=== PATIENT | female | born 2005 | race Hispanic/Latino ===

== ENCOUNTER 2025-01-12 17:33 | Emergency (ER) | payer SELFPAY ==
[~2025-01-12] VITALS: Ht 160 cm; Wt 99.8 kg
[2025-01-12 18:04] VITALS: TEMP 98.7
[2025-01-12] MEDS: ONDANSETRON HCL INJ 2MG/ML 2ML 2 MG/ML VIAL IV STA (18:25)
[2025-01-12 18:37] LABS: BASOPHILS % 0.4 % (0.0-1.0); EOSINOPHILS % 0.6 % (0.0-6.0); LYMPHOCYTES % 31.0 % (18.0-39.1); MONOCYTES % 4.9 % (4.4-11.3); NEUTROPHILS % 62.8 % (38.7-80.0); RED CELL DISTRIBUTION WIDTH 12.5 % (11.7-14.4)
[2025-01-12 19:07] LABS: CORONAVIRUS COVID-19 AG NEGATIVE (NEGATIVE); EST GLOMERULAR FILTRATION RATE 95.0 ML/MIN (>=60)
[2025-01-12 19:45] VITALS: PULSE 72; RESP 17
[2025-01-12] MEDS ORDERED: ONDANSETRON ODT4 MG SL (19:52)
[2025-01-12 20:01] VITALS: BP 114/91; O2SAT 97
== END 2025-01-12 20:00 | disposition home or self-care (01) ==
LOC: ER 18:12
DX: R06.02 Shortness of breath (principal); B34.9 Viral infection, unspecified; R11.2 Nausea with vomiting, unspecified; Z11.52 Encounter for screening for COVID-19
CPT/HCPCS: 36415; 71045; 80053; 84484; 84702; 85025; 85379; 87428; 93005; 99284; J2405

== ENCOUNTER 2025-01-20 20:27 | Emergency (ER) | payer SELFPAY ==
[~2025-01-20] VITALS: Ht 160 cm; Wt 99.8 kg
[~2025-01-20 20:27] MED LIST: ONDANSETRON ODT4 MG SL
[2025-01-20 21:30] VITALS: PULSE 89; RESP 20; TEMP 99.9; O2SAT 98
[2025-01-20] MEDS: KETOROLAC TROMETHAMINE 30 MG/ML VIAL IM STA (22:14)
[2025-01-20 22:15] LABS: CORONAVIRUS COVID-19 AG NEGATIVE (NEGATIVE); STREPTOCOCCUS GRP A ANTIGEN NEGATIVE (NEGATIVE)
[2025-01-20] MEDS: ACETAMINOPHEN 325 MG TAB PO ONE (22:15)
[2025-01-20] MEDS ORDERED: ONDANSETRON ODT4 MG PO (22:48)
== END 2025-01-20 23:15 | disposition home or self-care (01) ==
LOC: ER 20:31
DX: R11.2 Nausea with vomiting, unspecified (principal); G43.909 Migraine, unspecified, not intractable, without status migrainosus; Z11.52 Encounter for screening for COVID-19
CPT/HCPCS: 83518; 87070; 87428; 99284; J1885